=== PATIENT | female | born 1960 | race Caucasian/White ===

== ENCOUNTER → 2016-09-24 | Outpatient (CLI) | payer BC | LOC: BHSO 09:45 | DX: F31.74 Bipolar disorder, in full remission, most recent episode manic (principal) ==

== ENCOUNTER → 2016-10-10 | Outpatient (REF) | LOC: ZLAB.WCH 15:45 | DX: Z01.89 Encounter for other specified special examinations (principal) ==

== ENCOUNTER → 2017-03-25 | Outpatient (CLI) | payer BC | LOC: BHSO 09:43 | DX: F31.74 Bipolar disorder, in full remission, most recent episode manic (principal) ==

== ENCOUNTER → 2017-04-14 | Outpatient (REF) | LOC: ZLAB.WCH 18:19 | DX: Z01.89 Encounter for other specified special examinations (principal) ==

== ENCOUNTER → 2017-09-09 | Outpatient (REF) | LOC: ZLAB.WCH 18:11 | DX: Z01.89 Encounter for other specified special examinations (principal) ==

== ENCOUNTER → 2017-09-24 | Outpatient (CLI) | payer BC | LOC: BHSO 09:27 | DX: F31.72 Bipolar disorder, in full remission, most recent episode hypomanic (principal) | CPT/HCPCS: G0463 ==